=== PATIENT | male | born 1970 | race African-American/Black ===

== ENCOUNTER 2016-10-16 01:12 | Emergency (ER) | payer OTHER ==
[~2016-10-16] VITALS: Ht 167.6 cm; Wt 85.0 kg
[2016-10-16 01:29] VITALS: BP 114/60
== END 2016-10-16 03:57 | disposition left against medical advice (07) ==
LOC: M ED 01:12
DX: R10.10 Upper abdominal pain, unspecified (principal); Z53.21 Procedure and treatment not carried out due to patient leaving prior to being seen by health care provider

== ENCOUNTER 2017-03-18 11:09 | Day surgery (SDC) | payer OTHER ==
[2017-03-18] MEDS: NS 1,000 ML IV (11:30)
[2017-03-18] MEDS ORDERED: LIDOCAINE 2% INJ 100 MG/5 ML SDV (FOR ANES.) As Ordered (12:02)
[2017-03-18] MEDS ORDERED: PROPOFOL 200 MG/20 ML VIAL As Ordered ×2 (12:02)
== END 2017-03-18 13:03 | disposition home or self-care (01) ==
LOC: M OPP 11:09
DX: Z12.11 Encounter for screening for malignant neoplasm of colon (principal); Z80.0 Family history of malignant neoplasm of digestive organs; D12.3 Benign neoplasm of transverse colon; K64.0 First degree hemorrhoids; R10.13 Epigastric pain; R12 Heartburn; K44.9 Diaphragmatic hernia without obstruction or gangrene; K21.9 Gastro-esophageal reflux disease without esophagitis; J00 Acute nasopharyngitis [common cold]; G47.30 Sleep apnea, unspecified; R06.83 Snoring; Z79.899 Other long term (current) drug therapy
CPT/HCPCS: 45380

== ENCOUNTER → 2017-04-12 | Outpatient (CLI) | payer OTHER | LOC: M RAD 07:16 | DX: R10.13 Epigastric pain (principal) | CPT/HCPCS: J2805 ==

== ENCOUNTER → 2017-04-15 | Outpatient (CLI) | payer OTHER | LOC: M RAD 07:16 | DX: R10.13 Epigastric pain (principal) | CPT/HCPCS: 78264 ==